=== PATIENT | male | born 1955 | race Caucasian/White ===

== ENCOUNTER 2017-12-08 08:09 | Emergency (ER) | payer BC ==
[~2017-12-08] VITALS: Ht 177.8 cm; Wt 78.0 kg
[~2017-12-08 08:09] MED LIST: CIPR500T4 PO; FLAG500T PO; FOLI1TAB PO; PERC10TA27 PO; PRAV20 PO; SULF500T35 PO; ZOFR4TAB3 SL
[2017-12-08 08:13] VITALS: BP 128/60; PULSE 78; RESP 16; TEMP 97.5; O2SAT 97
[2017-12-08] MEDS ORDERED: FINA15GE TOPICAL (08:27)
[2017-12-08] MEDS ORDERED: PROT40TA PO (08:27)
[2017-12-08] MEDS ORDERED: FOLI800T PO (08:27)
[2017-12-08] MEDS ORDERED: PRAV40TA2 PO (08:27)
[2017-12-08] MEDS ORDERED: [UNRECOGNIZED DRUG - CODE] (08:27)
[2017-12-08] MEDS ORDERED: SULF500T3 PO (08:27)
--- NOTE | 2017-12-08 08:33 | PD ---
HPI Chief Complaint: Musculoskeletal Complaint Time Seen by Provider: 08:19 Travel History International Travel<30 days: No Contact w/Intl Traveler<30days: No Traveled to known affect area: No History of Present Illness HPI This 62-year-old male is complaining of pain in his left thigh. He is been having this pain for a couple of days. The pain is worse at night. It seems to ease up a little bit when he moves his leg. It started in the inguinal area but most recently has been greatest on the medial aspect of the thigh just above the knee. He is able to walk does not seem to aggravate it too much. There is been no fever or chills. He does use a versaclimber for exercise. He had a meniscal injury on one knee is not sure what side it was on. PFSH Past Medical History High Cholesterol: Yes Diminished Hearing: No Gastrointestinal Disorders: Yes (ULCERATIVE COLITIS/CHRONS?) GERD: Yes Tetanus Vaccination: > 5 Years Influenza Vaccination: No Past Surgical History Abdominal Surgery: Yes (INGUINAL HERNIA REAIR X3) Cholecystectomy: Yes Other Surgery: Yes (LEFT KNEE MISINSICUS) Social History Alcohol Use: Yes (occ) Tobacco Use: No Substance Use: No Allergies-Medications (Allergen,Severity, Reaction): Coded Allergies: mesalamine (Unverified Adverse Reaction, Unknown, 12/08/17) Reported Meds & Prescriptions Reported Meds & Active Scripts Active Reported Xolegel Topical (Ketoconazole Topical) 2% Gel Finacea Topical (Azelaic Acid) 15% Gel 1 Applic TOPICAL BID Apply and gently massage a thin layer into affected areas on the face. Protonix (Pantoprazole Sodium) 40 Mg Tab 40 Mg PO DAILY Pravastatin 40 Mg Tab 40 Mg PO DAILY Sulfasalazine 500 Mg Tab 1,000 Mg PO TID Folic Acid 0.8 Mg Tab 1 Mg PO DAILY Review of Systems General / Constitutional: No: Fever, Chills Eyes: No: Diploplia Cardiovascular: No: Chest Pain or Discomfort Gastrointestinal: No: Vomiting, Diarrhea Musculoskeletal: Positive: Myalgias, No: Arthralgias Skin: No Rash Neurologic: No: Weakness Physical Exam Narrative GENERAL: Well-developed male SKIN: Focused skin assessment warm/dry. HEAD: Atraumatic. Normocephalic. EYES: Pupils equal and round. No scleral icterus. No injection or drainage. ENT: No nasal bleeding or discharge. Mucous membranes pink and moist. NECK: Trachea midline. No JVD. MUSCULOSKELETAL: No obvious deformities. No clubbing. No cyanosis. No edema. The affected extremity is the left thigh. There is really no pain with palpation the sites of pain of the inguinal area and the medial distal area. There is no point tenderness. There is no pain with compression of the thigh. There is full range of motion of the knee and no erythema. NEUROLOGICAL: Awake and alert. No obvious cranial nerve deficits. Motor grossly within normal limits. Normal speech. PSYCHIATRIC: Appropriate mood and affect; insight and judgment normal. Data Data Last Documented VS Vital Signs Date Time Temp Pulse Resp B/P (MAP) Pulse Ox O2 Delivery O2 Flow Rate FiO2 12/08/17 08:13 97.5 78 16 128/60 (82) 97 Orders Orders Complete Blood Count With Diff (12/08/17 08:31) Comprehensive Metabolic Panel (12/08/17 08:31) Creatine Kinase (Cpk) (12/08/17 08:31) Westergren Sedimentation Rate (12/08/17 08:31) Femur (Ap & Lat/2vws) (12/08/17 08:31) Labs Laboratory Tests Test 12/08/17 08:40 White Blood Count 4.7 TH/MM3 Red Blood Count 4.62 MIL/MM3 Hemoglobin 13.5 GM/DL Hematocrit 41.0 % Mean Corpuscular Volume 88.8 FL Mean Corpuscular Hemoglobin 29.3 PG Mean Corpuscular Hemoglobin Concent 33.0 % Red Cell Distribution Width 12.8 % Platelet Count 251 TH/MM3 Mean Platelet Volume 7.5 FL Neutrophils (%) (Auto) 64.8 % Lymphocytes (%) (Auto) 26.7 % Monocytes (%) (Auto) 7.4 % Eosinophils (%) (Auto) 0.2 % Basophils (%) (Auto) 0.9 % Neutrophils # (Auto) 3.1 TH/MM3 Lymphocytes # (Auto) 1.3 TH/MM3 Monocytes # (Auto) 0.3 TH/MM3 Eosinophils # (Auto) 0.0 TH/MM3 Basophils # (Auto) 0.0 TH/MM3 CBC Comment DIFF FINAL Differential Comment Erythrocyte Sedimentation Rate 8 mm/hr Blood Urea Nitrogen 18 MG/DL Creatinine 0.71 MG/DL Random Glucose 89 MG/DL Total Protein 7.6 GM/DL Albumin 4.0 GM/DL Calcium Level 9.2 MG/DL Alkaline Phosphatase 94 U/L Aspartate Amino Transf (AST/SGOT) 23 U/L Alanine Aminotransferase (ALT/SGPT) 30 U/L Total Bilirubin 0.2 MG/DL Sodium Level 142 MEQ/L Potassium Level 4.1 MEQ/L Chloride Level 109 MEQ/L Carbon Dioxide Level 30.6 MEQ/L Anion Gap 2 MEQ/L Estimat Glomerular Filtration Rate 113 ML/MIN Total Creatine Kinase 63 U/L [facility] Medical Decision Making Medical Screen Exam Complete: Yes Emergency Medical Condition: Yes Medical Record Reviewed: Yes Differential Diagnosis Differential includes arthritis, myositis, muscular strain Narrative Course X-ray is negative or bony abnormality. Examination is not suggestive of abscess or DVT. Blood work does not show any evidence of inflammatory process. I suspect this may be muscular strain he has been having trouble sleeping and I will prescribe some Ambien Diagnosis Primary Impression: Muscle strain Scripts Zolpidem (Ambien) 5 Mg Tab 5 MG PO HS Y for INSOMNIA, #10 TAB 0 Refills Prov: Osman Clemens MD 12/08/17 Disposition: DISCHARGE HOME Condition: Stable Osman Clemens MD Dec 08, 2017 08:33
[2017-12-08 08:46] LABS: AUTOMATED NEUTROPHIL # 3.1 TH/MM3 (1.8-7.7); BASOPHIL % 0.9 % (0.0-2.0); EOSINOPHIL % 0.2 % (0.0-4.0); HEMOGLOBIN 13.5 GM/DL (13.0-17.0); LYMPH % 26.7 % (9.0-44.0); LYMPHOCYTE # 1.3 TH/MM3 (1.0-4.8); MEAN CELL VOLUME 88.8 FL (80.0-100.0); MEAN CORPUSCULAR HEMOGLOBIN 29.3 PG (27.0-34.0); MEAN PLATELET VOLUME 7.5 FL (7.0-11.0); MONO % 7.4 % (0.0-8.0); MONOCYTE # 0.3 TH/MM3 (0-0.9); NEUT % 64.8 % (16.0-70.0); PLATELET COUNT 251 TH/MM3 (150-450); RED BLOOD COUNT 4.62 MIL/MM3 (4.50-5.90); RED CELL DISTRIBUTION WIDTH 12.8 % (11.6-17.2); WHITE BLOOD COUNT 4.7 TH/MM3 (4.0-11.0)
[2017-12-08 08:57] LABS: CHLORIDE 109 MEQ/L (98-107); SODIUM (NA) 142 MEQ/L (136-145)
[2017-12-08 09:00] LABS: CALCIUM 9.2 MG/DL (8.5-10.1)
[2017-12-08 09:01] LABS: BICARBONATE 30.6 MEQ/L (21.0-32.0); BLOOD UREA NITROGEN 18 MG/DL (7-18); GLUCOSE,RANDOM 89 MG/DL (74-106)
[2017-12-08 09:04] LABS: ALT (GPT) 30 U/L (12-78); AST (GOT) 23 U/L (15-37); CREATININE 0.71 MG/DL (0.60-1.30); GLOMERULAR FILTRATION RATE 113 ML/MIN (>89)
[2017-12-08 09:05] LABS: TOTAL BILIRUBIN ADULT 0.2 MG/DL (0.2-1.0); TOTAL PROTEIN 7.6 GM/DL (6.4-8.2)
[2017-12-08 09:07] LABS: ALKALINE PHOSPHATASE 94 U/L (45-117)
--- NOTE | 2017-12-08 09:17 | RADRPT ---
EXAM DATE/TIME: 12/08/2017 08:44 [facility] COMPARISON: No previous studies available for comparison. INDICATIONS : Left thigh pain x a couple of days starting in hip area now mostly in the medial knee area with no kn own injury. MEDICAL HISTORY : Hypercholesterolemia. Irritable bowel syndrome. Ulcerative colitis. Asthma. GERD. SURGICAL HISTORY : Inguinal hernia repair. ENCOUNTER: Initial ACUITY: 3 days PAIN SCORE: 7/10 LOCATION: Left medial femur FINDINGS: Two view examination of the left femur demonstrates no evidence of fracture or dislocation. Bony min eralization is normal. The soft tissue structures are intact. CONCLUSION: Unremarkable examination of the left femur. Adiel Toure MD on December 08, 2017 at 9:15 Board Certified Radiologist. This report was verified electronically.
[2017-12-08] MEDS ORDERED: AMBI5TAB PO (09:37)
== END 2017-12-08 09:44 | disposition home or self-care (01) ==
LOC: PHED 08:09
DX: S76.812A Strain of other specified muscles, fascia and tendons at thigh level, left thigh, initial encounter (principal); M79.1 Myalgia; E78.00 Pure hypercholesterolemia, unspecified; K21.9 Gastro-esophageal reflux disease without esophagitis; X58.XXXA Exposure to other specified factors, initial encounter; Z87.19 Personal history of other diseases of the digestive system; Z79.899 Other long term (current) drug therapy; Z88.8 Allergy status to other drugs, medicaments and biological substances
CPT/HCPCS: 73552; 80053; 82550; 85025; 85652; 99284